=== PATIENT | male | born 2000 | race Caucasian/White ===

== ENCOUNTER 2020-11-03 21:15 | Emergency (ER) | payer MEDICAID ==
[~2020-11-03] VITALS: Ht 177.8 cm; Wt 109.0 kg
[2020-11-03] MEDS ORDERED: IBUPROFEN 600MG TABLET PO ONE (23:30)
[2020-11-03] MEDS ORDERED: IBUP-2028 MT (23:57)
[2020-11-04 00:40] VITALS: BP 142/84
== END 2020-11-04 00:41 | disposition home or self-care (01) ==
LOC: ER 21:15
DX: R07.89 Other chest pain (principal); R00.2 Palpitations; F41.9 Anxiety disorder, unspecified
CPT/HCPCS: 71045; 93005; 99283